=== PATIENT | female | born 1945 | race Caucasian/White ===

== ENCOUNTER 2023-03-28 15:17 | Inpatient (IN) | payer MEDICARE ==
--- NOTE | 2023-03-28 15:45 | ED ---
Lower Extremity Injury HPI - General Stated Complaint: Fall Time Seen by Provider: 03/28/23 15:35 Source: patient, RN notes reviewed Mode of arrival: EMS Limitations: physical limitation - History of Present Illness Initial Comments: Patient is 77-year-old female presented ER via EMS from [facility] with a chief complaint of left hip pain. Patient states she was moving a limb in her yard when the limb broke and she fell backwards landing on her back. Patient denies head injury, loss of consciousness or other injuries. At [facility] she was found to have a left comminuted intertrochanteric fracture of the proximal left femur. Patient received morphine prior to arrival in the ER. Patient states her pain is tolerable currently. Patient has no ot her complaints. - Related Data Home Medications Medication Instructions Recorded Confirmed Calcium Carbonate [Calcium] 600 mg PO DAILY 03/28/23 03/28/23 Escitalopram [Lexapro] 10 mg PO DIRECTED 03/28/23 03/28/23 Multivitamins, Thera [Multivitamin 1 tab PO DAILY 03/28/23 03/28/23 (formulary)] Myrbetriq (Unknown Strength) 1 dose PO DAILY PRN 03/28/23 03/28/23 Tobra-Dexamet 0.3-0.1% Eye Jeaentte 1 drop BOTH EYES DIRECTED 03/28/23 03/28/23 [Tobradex Ophth Susp] Unknown Blood Pressure Medication 1 dose PO DAILY 03/28/23 03/28/23 Allergies Allergy/AdvReac Type Severity Reaction Status Date / Time No Known Allergies Allergy Verified 03/28/23 16:39 Review of Systems ROS Statement: Those systems with pertinent positive or pertinent negative responses have been documented in the HPI. ROS Other: All systems not noted in ROS Statement are negative. General Exam Limitations: physical limitation General appearance: alert, in no apparent distress Respiratory exam: Present: normal lung sounds bilaterally. Absent: respiratory distress, wheezes, rales, rhonchi, stridor Cardiovascular Exam: Present: regular rate, normal rhythm, normal heart sounds. Absent: systolic murmur, diastolic murmur, rubs, gallop, clicks Extremities exam: Present: other (Left leg is slightly shortened with internal rotation of the hip. 2+ left dorsalis pedis pulse. Sensation intact. Positive leg roll.) Neurological exam: Present: alert, oriented X3, CN II-XII intact Psychiatric exam: Present: normal affect, normal mood Skin exam: Present: warm, dry, intact, normal color. Absent: rash Course Vital Signs 03/28/23 03/28/23 03/28/23 15:44 20:03 20:04 Temperature 98 F Pulse Rate 80 68 Respiratory 18 Rate Blood Pressure 137/87 150/77 O2 Sat by Pulse 96 95 Oximetry 03/28/23 20:52 Temperature 98.0 F Pulse Rate Respiratory Rate Blood Pressure O2 Sat by Pulse Oximetry Medical Decision Making - Medical Decision Making Was pt. sent in by a medical professional or institution (, PA, ELECTRICAL EXPERIMENTAL MECHANIC, urgent care, hospital, or residential...) When possible be specific @ -Yes patient was sent from [facility] due to comminuted fracture of left femur for orthopedic consultation. Did you speak to anyone other than the patient for history (EMS, parent, family, police, friend...)? What history was obtained from this source @ -No Did you review nursing and triage notes (agree or disagree)? Why? @ -I reviewed and agree with nursing and triage notes Were old charts reviewed (outside hosp., previous admission, EMS record, old EKG, old radiological studies, urgent care reports/EKG's, residential records)? Report findings @ -I reviewed hospital ER visit from [place]. Patient had CT brain C- spine which was negative for acute process. Patient also had x-ray and CT of left hip showing a comminuted fracture of left femur. Patient was transferred here for orthopedic consultation and further care. Differential Diagnosis (chest pain, altered mental status, abdominal pain women, abdominal pain men, vaginal bleeding, weakness, fever, dyspnea, syncope, headache, dizziness, GI bleed, back pain, seizure, CVA, palpatations, mental health, musculoskeletal)? @ -Differential Musculoskeletal: Muscular strain, contusion, ligament sprain, fracture, arthritis, septic arthritis, bursitis, cellulitis, muscle spasm, nerve compression, DVT, arterial occlusion, herpes zoster, electrolyte abnormality, t umor.... This is not meant to be in all inclusive list EKG interpreted by me (3pts min.). @ -None X-rays interpreted by me (1pt min.). @ -Left AP pelvis and hip x-rays interpreted by me show comminuted fracture of left proximal femur through intertrochanteric region. CT interpreted by me (1pt min.). @ -None done U/S interpreted by me (1pt. min.). @ -None done What testing was considered but not performed or refused? (CT, X-rays, U/S, labs)? Why? @ -None What meds were considered but not given or refused? Why? @ -None Did you discuss the management of the patient with other professionals (professionals i.e. DrBuck, PA, ELECTRICAL EXPERIMENTAL MECHANIC, lab, RT, psych nurse, social media director, international representative, teacher, sheriff officer, family caseworker)? Give summary @ -Yes, I discussed this case with Adam Gomez from orthopedics who advised to start patient on TXA and admit for surgery. He also advised repeat x-rays due to difficulty loading them from prior hospital. I also spoke with [facility], who accepted medical admission. Was smoking cessation discussed for >3mins.? @ -No Was critical care preformed (if so, how long)? @ -No Were there social determinants of health that impacted care today? How? (Homelessness, low income, unemployed, alcoholism, drug addiction, transportation, low edu. Level, literacy, decrease access to med. care, long term, rehab)? @ -No Was there de-escalation of care discussed even if they declined (Discuss DNR or withdrawal of care, Hospice)? DNR status @ -No What co-morbidities impacted this encounter? (DM, HTN, Smoking, COPD, CAD, Cancer, CVA, ARF, Chemo, Hep., AIDS, mental health diagnosis, sleep apnea, morbid obesity)? @ -None Was patient admitted / discharged? Hospital course, mention meds given and route, prescriptions, significant lab abnormalities, going to OR and other pertinent info. @ -Admitted. Patient is a 79-year-old female presenting to the ER from [facility] chief complaint of a left hip injury. Vitals stable. Review of documents from [facility] show a left comminuted fracture of left proximal femur. Patient had CT brain C-spine which was negative for acute process. History and physical exam were completed. Patient was neurovascularly intact. Left leg roll elicited pain. Patient did receive morphine prior to arrival and patient was mildly sedated but able to answer questions properly. I discussed case with Adam gomez with orthopedics who advised to start patient on TXA in to admit with Dr. Kay on consult. I also spoke with [facility] for medical admission, who accepted. Patient will be admitted to medicine with orthopedics on consult. I discussed plan with patient and family, at bedside. Patient and family expressed understanding and agreement with care plan. Undiagnosed new problem with uncertain prognosis? @ -No Drug Therapy requiring intensive monitoring for toxicity (Heparin, Nitro, Insulin, Cardizem)? @ -No Were any procedures done? @ -No Diagnosis/symptom? @ -Comminuted fracture of left femur Acute, or Chronic, or Acute on Chronic? @ -Acute Uncomplicated (without systemic symptoms) or Complicated (systemic symptoms)? @ -Uncomplicated Side effects of treatment? @ -No Exacerbation, Progression, or Severe Exacerbation? @ -No Poses a threat to life or bodily function? How? (Chest pain, USA, MA, pneumonia, PE, COPD, DKA, ARF, appy, cholecystitis, CVA, Diverticulitis, Homicidal, Suicid al, threat to staff... and all critical care pts) @ -No - Lab Data Result diagrams: 03/29/23 05:40 03/29/23 05:40 - Radiology Data Radiology results: report reviewed, image reviewed Disposition Clinical Impression: Comminuted fracture of shaft of femur Disposition: [facility] Condition: Stable Time of Disposition: 10:09
[2023-03-28] MEDS ORDERED: TRANEXAMIC 1,000 MG/100ML-NACL 1,000 MG in SALINE 1 100ML.BAG IV STA (17:05)
[2023-03-28] MEDS ORDERED: NALOXONE 0.4 MG/ML 1 ML VIAL IV PRN (17:16)
--- NOTE | 2023-03-28 18:12 | P.HPOR ---
History of Present Illness H&P Date: 03/28/23 Chief Complaint: Left hip fracture Patient is a 77-year-old female who was transferred from [facility] for evaluation of a left hip injury. Patient was apparently out in her yard moving a fall and limb when she fell and landed on her left lower extremity. Patient was unable to weight-bear after the injury, she was taken to [facility] by EMS for further evaluation. There was concern for a left hip fracture, she was transferred to [facility] for further evaluation. Upon arrival, I was able to discuss with the emergency room staff the case. Computed tomography scan images were reviewed by myself and my attending Dr. Kay. Patient was noted to have a left subtrochanteric fracture with intertrochanteric extension. Further x-rays were ordered as include AP pelvis, left hip x-rays and left femur x-rays for further evaluation. Patient was evaluated in the emergency room, her son and were both present. Patient was slightly out of a due to IV pain medication but was able to answer most my questions accurately. She does have a history of a left total knee arthroplasty that was done about 5 years ago, she notes no acute pain in the left knee at this time. She denies any pain involving the bilateral upper extremities or right lower extremity. She denies any new onset cervical, thoracic or lumbar pain. She denies any headaches, lightheadedness, chest pain, shortness of breath, nausea or vomiting at this time. Patient states that most of the pain is in the proximal aspect of the left lower extremity with movement. There is obvious shortening and rotation of that extremity. Patient denies any previous surgery to the left hip. Patient is a relatively active 77-year-old, she utilizes no assistive devices for ambulation at this time. Patient has no other orthopedic complaints at this time. Review of Systems Constitutional: Reports as per HPI Past Medical History History of Any Multi-Drug Resistant Organisms: None Reported Past Psychological History: No Psychological Hx Reported Smoking Status: Never smoker Past Alcohol Use History: None Reported Past Drug Use History: None Reported Medications and Allergies Home Medications Medication Instructions Recorded Confirmed Type Calcium Carbonate [Calcium] 600 mg PO DAILY 03/28/23 03/28/23 History Multivitamins, Thera [Multivitamin 1 tab PO DAILY 03/28/23 03/28/23 History (formulary)] Myrbetriq (Unknown Strength) 1 dose PO DAILY PRN 03/28/23 03/28/23 History Tobra-Dexamet 0.3-0.1% Eye Jeanette 1 drop BOTH EYES BID 03/28/23 03/28/23 History [Tobradex Ophth Susp] Unknown Blood Pressure Medication 1 dose PO DAILY 03/28/23 03/28/23 History Allergies Allergy/AdvReac Type Severity Reaction Status Date / Time No Known Allergies Allergy Verified 03/28/23 16:39 Physical Examination Left lower extremity: Shortening and a sternal rotation of the extremity compared to the contralateral side. Well-healed incision over the anterior aspect of the knee. No obvious open lesions, sores or areas of erythema to the proximal femur Tenderness with palpation noted to the proximal femur, she's nontender with palpation surrounding the knee, lower leg, foot or ankle No effusion is present on the knee She is unable to straight leg raise, logroll maneuver reproduces severe pain. Flexion and extension of the knee were difficult, this did reproduce pain in the proximal femur. I was able to appreciate good quadriceps and patellar tendon function. Plantar flexion, dorsiflexion, EHL, FHL are intact Calf is soft, no tenderness with palpation Sensory exam to light touch is intact throughout the extremity Dorsalis pedis pulses 2+ Gen. orthopedic exam: No point tenderness is appreciated on palpation of the bilateral upper extremities and right lower extremity. Full range of motion in all major muscle groups of the bilateral upper extremities, no focal deficits. Patient is able to extend and flex the knee along with plantar flexion, dorsiflexion, EHL, FHL to the right lower extremity with no focal deficits. Strength testing was not assessed of the bilateral upper extremities and right lower extremity. No acute cervical, thoracic or lumbar pain appreciated with palpation Results - Diagnostic results Hip x-ray: pending Knee x-ray: pending CT Scan - lumbar: image reviewed Assessment and Plan Assessment: Left subtrochanteric femur fracture with intertrochanteric extension Status post fall from standing Previous left total knee arthroplasty Other medical comorbidities Plan: Imaging: I was able to review the computed tomography scan images with my attending Dr. Kay. Images demonstrated a comminuted left subtrochanteric femur fracture with intertrochanteric extension. No other acute fractures or dislocations are present. X-rays were ordered of an AP pelvis, 2 views left hip and left femur x-rays for further evaluation Plan: After discussion with my attending Dr. Kay, patient was admitted under orthopedic care. Plan is for surgical intervention, more specifically an intramedullary nail of the left femur. Surgery scheduled for 03/30/2023. 1 mg of transischemic acid was ordered and given by the ER staff Risk and benefits of the procedure, this to include but not excluded infection, blood loss, neurovascular injury, development of blood clots, and adequate healing of bone, need for further surgery were discussed with patient and family, they are all in good understanding and would like to proceed. Consent to be obtained prior to procedure Luna catheter insertion at this time Nonweightbearing left lower extremity Pain control, okay to use both oral and IV medication begin scheduled stool softeners also Medical recommendations appreciated DVT prophylaxis, will utilize subcu medication after surgery Further recommendations to follow Time with Patient: Less than 30
--- NOTE | 2023-03-28 18:40 | XR ---
EXAMINATION TYPE: XR Hip LT and AP Pelvis, XR femur LT DATE OF EXAM: 03/28/2023 6:18 PM CLINICAL INDICATION:Female, 77 years old with history of pain; COMPARISON: None. TECHNIQUE: XR Hip LT and AP Pelvis, XR femur LT; hip was examined in the frontal and lateral projecti ons additionally oblique view of the knee. FINDINGS/IMPRESSION: 1. Comminuted left proximal femur fracture through the intertrochanteric region. There is mild varus deformity. 2. Left inferior pubic ramus lucency suspicious for nondisplaced fracture. 3. Follow-up left knee arthroplasty changes no evidence of fracture.
[2023-03-28] MEDS: SODIUM CHLORIDE 0.9% 1,000 ML IV SCH (20:01)
[2023-03-28] MEDS: ONDANSETRON 4 MG/2 ML VIAL IVP PRN (20:10)
[2023-03-28] MEDS: HYDROmorphone 1 MG/ML 1 ML SYRINGE IVP PRN (20:10)
[2023-03-29] MEDS: HYDROmorphone 1 MG/ML 1 ML SYRINGE IVP PRN ×7 (00:41→21:28)
[2023-03-29 09:26] LABS: Basophils # (A) 0.02 X 10*3/uL (0.00-0.10); Basophils % (A) 0.2 %; Eosinophils # (A) 0.01 X 10*3/uL (0.04-0.35); Eosinophils % (A) 0.1 %; HCT 40.9 % (37.2-46.3); HGB 13.1 g/dL (12.0-15.0); Lymphocytes # (A) 1.09 X 10*3/uL (0.90-5.00); Lymphocytes % (A) 9.6 %; MCH 29.4 pg (27.0-32.0); MCV 91.9 FL (80.0-97.0); Mean Platelet Volume 11.8 FL (9.5-12.2); Monocytes # (A) 1.28 X 10*3/uL (0.20-1.00); Monocytes % (A) 11.3 %; NRBC Per 100 WBC 0 X 10*3/uL (0.00-0.01); Neutrophils % (A) 78.5 %; Platelet Count 191 X 10*3/uL (140-440); RBC 4.45 X 10*6/uL (4.10-5.20); RDW 12.6 % (11.5-14.5); WBC 11.33 X 10*3/uL (4.50-10.00)
[2023-03-29 09:35] LABS: ALT 17 U/L (8-44); AST 18 U/L (13-35); Albumin 3.8 g/dL (3.8-4.9); Albumin/Globulin Ratio 1.81 Ratio (1.60-3.17); Alkaline Phosphatase 83 U/L (41-126); BUN/Creat Ratio 32.83 Ratio (12.00-20.00); Blood Urea Nitrogen 19.7 mg/dL (9.0-27.0); Calcium 8.9 mg/dL (8.7-10.3); Carbon Dioxide 26.4 mmol/L (21.6-31.8); Chloride 102 mmol/L (96-109); Globulin 2.1 g/dL (1.6-3.3); Glucose 105 mg/dL (70-110); Potassium 4.5 mmol/L (3.5-5.5); Sodium 138 mmol/L (135-145); Total Bilirubin 0.6 mg/dL (0.3-1.2); Total Protein 5.9 g/dL (6.2-8.2)
[2023-03-29 09:36] LABS: INR 1.06 sec (0.93-1.11); Prothrombin Time 11.4 sec (9.9-11.9)
--- NOTE | 2023-03-29 11:30 | P.PN ---
Subjective Progress Note Date: 03/29/23 Principal diagnosis: Left proximal femur fracture Patient evaluated at bedside, she is resting in her hospital bed. No acute events overnight. She does have some significant discomfort with movement. No chest pain, shortness of breath, fever or chills. Objective - Vital Signs Vital signs: Vital Signs Temp 98.5 F 03/29/23 06:59 Pulse 66 03/29/23 08:00 Resp 17 03/29/23 08:00 BP 123/75 03/29/23 06:59 Pulse Ox 94 L 03/29/23 06:59 FiO2 Intake & Output 03/28/23 03/29/23 03/29/23 18:59 06:59 18:59 Intake Total 1035 Output Total 600 Balance 435 Weight 80.286 kg Intake: Intake, IV Titration 675 Amount Sodium Chloride 0.9% 1, 675 000 ml @ 75 mls/hr IV . [id number] [facility] Rx#:[id number] Oral 360 Output: Urine 600 Other: Voiding Method Indwelling Catheter Indwelling Catheter - Exam Left lower extremity: Shortening and a sternal rotation of the extremity compared to the contralateral side. Well-healed incision over the anterior aspect of the knee. No obvious open lesions, sores or areas of erythema to the proximal femur Tenderness with palpation noted to the proximal femur, she's nontender with palpation surrounding the knee, lower leg, foot or ankle No effusion is present on the knee She is unable to straight leg raise, logroll maneuver reproduces severe pain. Flexion and extension of the knee were difficult, this did reproduce pain in the proximal femur. I was able to appreciate good quadriceps and patellar tendon function. Plantar flexion, dorsiflexion, EHL, FHL are intact Calf is soft, no tenderness with palpation Sensory exam to light touch is intact throughout the extremity Dorsalis pedis pulses 2+ Gen. orthopedic exam: No point tenderness is appreciated on palpation of the bilateral upper extremities and right lower extremity. Full range of motion in all major muscle groups of the bilateral upper extremities, no focal deficits. Patient is able to extend and flex the knee along with plantar flexion, dorsiflexion, EHL, FHL to the right lower extremity with no focal deficits. Strength testing was not assessed of the bilateral upper extremities and right lower extremity. No acute cervical, thoracic or lumbar pain appreciated with palpation - Labs CBC & Chem 7: 03/29/23 05:40 03/29/23 05:40 Labs: Abnormal Lab Results - Last 24 Hours (Table) 03/29/23 03/29/23 Range/Units 05:40 05:40 WBC 11.33 H (4.50-10.00) X 10*3/uL Neutrophils # 8.90 H (1.80-7.70) X 10*3/uL Monocytes # 1.28 H (0.20-1.00) X 10*3/uL Eosinophils # 0.01 L (0.04-0.35) X 10*3/uL BUN/Creatinine Ratio 32.83 H (12.00-20.00) Ratio Total Protein 5.9 L (6.2-8.2) g/dL Assessment and Plan Assessment: Left subtrochanteric femur fracture with intertrochanteric extension Status post fall from standing Previous left total knee arthroplasty Other medical comorbidities Plan: n Plan: Surgery scheduled for 03/30/2023 Risk and benefits of the procedure, this to include but not excluded infection, blood loss, neurovascular injury, development of blood clots, and adequate healing of bone, need for further surgery were discussed with patient and family, they are all in good understanding and would like to proceed. Consent to be obtained prior to procedure Maintain Luna catheter Nonweightbearing left lower extremity Pain control, okay to use both oral and IV medication begin scheduled stool softeners also Regular diet at this time, nothing by mouth after midnight Medical recommendations appreciated DVT prophylaxis, will utilize subcu medication after surgery Further recommendations to follow Time with Patient: Less than 30
[2023-03-29] MEDS: HYDROcodone/APAP 7.5-325MG 1 EACH TAB PO PRN (13:37)
[2023-03-29] MEDS ORDERED: FLUTICASONE 50MCG/SPRAY NASAL 16GM EA NOSTRIL PRN (15:33)
[2023-03-29] MEDS ORDERED: PATIENT'S OWN (Mirabegron [Myrbetriq] 50 MG Tab.Er.24h) PO PRN (15:33)
--- NOTE | 2023-03-29 15:35 | P.CONS ---
History of Present Illness - Reason for Consult Consult date: 03/29/23 - History of Present Illness This is a 77-year-old female with medical history of anxiety, hypertension. Surgical history of cholecystectomy and left knee replacement. Patient presents to the hospital after fall and complaining of left leg pain. Patient states that a limb fell in her yard and she was helping to move the tree limb and she was playing backwards from the limb broke and she fell landing on her back. She was found to have a left comminuted intertrochanteric fracture of the proximal left femur done at [place] she was given pain medication and sent down to [facility] for further evaluation. Hip pelvis x-ray completed here shows the comminuted left proximal femur fracture to the itch trochanteric region there is mild varus deformity. There is a left inferior pubic rami lucency suspicious for nondisplaced fracture. Follow-up left knee arthroplasty changes and showed no evidence of fracture. Had a mildly elevated white blood cell count 11.33 on admission, normal renal function. Patient has been afebrile, heart rate in the 60s, fibular rhythm, blood pressure 120/69. We are asked to see the patient to get preoperative clearance patient should be a low operative risk we are pending a chest x-ray and EKG. REVIEW OF SYSTEMS: CONSTITUTIONAL: No fever, no malaise, no fatigue. HEENT: No recent visual problems or hearing problems. Denied any sore throat. CARDIOVASCULAR: No chest pain, orthopnea, PND, no palpitations, no syncope. PULMONARY: No shortness of breath, no cough, no hemoptysis. GASTROINTESTINAL: No diarrhea, no nausea, no vomiting, no abdominal pain. NEUROLOGICAL: No headaches, no weakness, no numbness. HEMATOLOGICAL: Denies any bleeding or petechiae. GENITOURINARY: Denies any burning micturition, frequency, or urgency. MUSCULOSKELETAL/RHEUMATOLOGICAL: Denies any joint pain, swelling, or any muscle pain. ENDOCRINE: Denies any polyuria or polydipsia. The rest of the 14-point review of systems is negative. PHYSICAL EXAMINATION: GENERAL: The patient is alert and oriented x3, not in any acute distress. Well developed, well nourished. HEENT: Pupils are round and equally reacting to light. EOMI. No scleral icterus. No conjunctival pallor. Normocephalic, atraumatic. No pharyngeal erythema. No thyromegaly. CARDIOVASCULAR: S1 and S2 present. No murmurs, rubs, or gallops. PULMONARY: Chest is clear to auscultation, no wheezing or crackles. ABDOMEN: Soft, nontender, nondistended, normoactive bowel sounds. No palpable organomegaly. MUSCULOSKELETAL: No joint swelling or deformity. EXTREMITIES: No cyanosis, clubbing, or pedal edema. NEUROLOGICAL: Gross neurological examination did not reveal any focal deficits. SKIN: No rashes. Assessment and Plan Acute left femoral fracture status post fall with trauma patient is scheduled to undergo surgical repair tomorrow and is considered a low operative risk as well as EKG does not show any evidence of ischemia and chest x-ray is nondiagnostic. EKG and chest xray are currently pending. History hypertension currently normotensive recommend to hold fosinopril to avoid perio and postoperative hypotension. Continue to monitor blood pressure. History of anxiety not an active issue patient will be continued on lexapro Seasonal allergic rhinitis continue on flonase daily. Overactive bladder can be resumed on myrbetriq this is a non formulary medication would need to be brought in from home Leukocytosis, reactive GI prophylaxis DVT prophylaxis as per primary The impression and plan of care has been dictated by Gladys Chacon, Nurse Practitioner as directed. Dr. Kyeana MD I have performed a history and physical examination and medical decision making of this patient, discussed the same with the dictator, and agree with the dictators assessment and plan as written, documented as a scribe. Based on total visit time, I have performed more than 50% of this visit. Past Medical History Additional Past Medical History / Comment(s): anxiety History of Any Multi-Drug Resistant Organisms: None Reported Additional Past Surgical History / Comment(s): L knee replacement, gallbladder removed, hand growth removed, hysterectomy Past Anesthesia/Blood Transfusion Reactions: Postoperative Nausea & Vomiting (P ONV) Past Psychological History: Anxiety Smoking Status: Never smoker Past Alcohol Use History: None Reported Past Drug Use History: None Reported Medications and Allergies Home Medications Medication Instructions Recorded Confirmed Type Calcium Carbonate [Calcium] 600 mg PO DAILY 03/28/23 03/28/23 History Escitalopram [Lexapro] 10 mg PO HS 03/28/23 03/29/23 History Multivitamins, Thera [Multivitamin 1 tab PO DAILY 03/28/23 03/28/23 History (formulary)] Tobra-Dexamet 0.3-0.1% Eye Jeanette 1 drop BOTH EYES DIRECTED 03/28/23 03/28/23 Hi story [Tobradex Ophth Susp] Fluticasone Nasal [place] [Flonase 1 spray EA NOSTRIL DAILY PRN 03/29/23 03/29/23 History Nasal [place]] Fosinopril [Monopril] 10 mg PO DAILY 03/29/23 03/29/23 History Mirabegron [Myrbetriq] 50 mg PO DAILY PRN 03/29/23 03/29/23 History Allergies Allergy/AdvReac Type Severity Reaction Status Date / Time No Known Allergies Allergy Verified 03/28/23 16:39 Physical Exam Vitals: Vital Signs Temp Pulse Pulse Resp BP BP Pulse Ox 03/29/23 13:24 98.7 F 60 18 122/69 93 L 03/29/23 08:00 66 17 03/29/23 06:59 98.5 F 66 17 123/75 94 L 03/29/23 01:35 98.7 F 71 18 124/75 93 L 03/28/23 21:53 98.5 F 73 17 145/78 92 L 03/28/23 20:52 98.0 F 03/28/23 20:04 150/77 03/28/23 20:03 68 95 03/28/23 15:44 98 F 80 18 137/87 96 Intake and Output 03/29/23 03/29/23 03/29/23 06:59 14:59 22:59 Intake Total 1035 Output Total 600 Balance 435 Intake: Intake, IV Titration 675 Amount Sodium Chloride 0.9% 1, 675 000 ml @ 75 mls/hr IV . [id number] [facility] Rx#:[id number] Oral 360 Output: Urine 600 Other: Voiding Method Indwelling Catheter Results CBC & Chem 7: 03/29/23 05:40 03/29/23 05:40 Labs: Abnormal Lab Results - Last 24 Hours (Table) 03/29/23 03/29/23 Range/Units 05:40 05:40 WBC 11.33 H (4.50-10.00) X 10*3/uL Neutrophils # 8.90 H (1.80-7.70) X 10*3/uL Monocytes # 1.28 H (0.20-1.00) X 10*3/uL Eosinophils # 0.01 L (0.04-0.35) X 10*3/uL BUN/Creatinine Ratio 32.83 H (12.00-20.00) Ratio Total Protein 5.9 L (6.2-8.2) g/dL Assessment and Plan Time with Patient: Less than 30
[2023-03-29] MEDS: TOBRA-DEXAMET 0.3-0.1% OPHTH DROPS 2.5 ML BTL BOTH EYES SCH ×2 (17:56→21:27)
--- NOTE | 2023-03-29 19:50 | XR ---
EXAMINATION TYPE: XR chest 1V portable DATE OF EXAM: 03/29/2023 Comparison: None Clinical History: 77-year-old female pre op clearance Findings: Heart mildly enlarged. Mild perihilar and interstitial densities especially on the left. No other con solidation or pleural effusion. Impression: Mild cardiomegaly and interstitial density. Correlate to exclude mild pulmonary vascular congestion. Recommend follow-up to reassess the left hilum to exclude any developing infiltrate here.
[2023-03-29] MEDS: SODIUM CHLORIDE 0.9% 1,000 ML IV SCH ×2 (19:57→21:28)
[2023-03-29] MEDS: ESCITALOPRAM 10 MG TAB PO SCH (21:28)
[2023-03-30] MEDS: HYDROmorphone 1 MG/ML 1 ML SYRINGE IVP PRN ×4 (00:50→21:30)
[2023-03-30] MEDS: MULTIVITAMINS, THERA 1 EACH TAB PO SCH (08:28)
[2023-03-30] MEDS: CALCIUM CARBONATE 500 MG CHEWABLE PO SCH (08:28)
--- NOTE | 2023-03-30 08:51 | P.PN ---
Progress Note - Text Progress Note Date: 03/30/23 Patient seen this morning. Patient is resting comfortably in bed. Patient does report significant pain into the left hip. She does report that her pain is managed once she receives IV medication. Patient has remained nothing by mouth since midnight for surgical procedure later today. Vital signs and labs have been reviewed and are stable. No acute concerns at this time.
[2023-03-30] MEDS ORDERED: DEXAMETHASONE SOD PHOSPHATE 4 MG/ML 1 ML VIAL IV ONE (09:37)
[2023-03-30] MEDS ORDERED: ONDANSETRON 4 MG/2 ML VIAL IVP ONE (09:37)
[2023-03-30] MEDS: TOBRA-DEXAMET 0.3-0.1% OPHTH DROPS 2.5 ML BTL BOTH EYES SCH ×2 (10:15→21:33)
[2023-03-30] MEDS: LACTATED RINGERS 1,000 ML IV SCH (10:59)
[2023-03-30] MEDS: lisinopriL 10 MG TAB PO SCH ×2 (12:21→12:30)
[2023-03-30] MEDS: ONDANSETRON 4 MG/2 ML VIAL IVP PRN (12:26)
[2023-03-30] MEDS ORDERED: IV FLUID CONTINUATION 1,000 ML IV ONE (16:00)
[2023-03-30] MEDS: SODIUM CHLORIDE 0.9% 1,000 ML IV SCH (16:02)
[2023-03-30] MEDS ORDERED: KETAMINE HCL IN 0.9 % NACL 50 MG/5 ML SYRINGE ONE (16:41)
[2023-03-30] MEDS ORDERED: MIDAZOLAM 2 MG/2 ML VIAL ONE (16:41)
[2023-03-30] MEDS ORDERED: fentaNYL (PF) 50 MCG/ML 2 ML AMP ONE (16:41)
[2023-03-30] MEDS ORDERED: SODIUM CHLORIDE 0.9% 100 ML with ceFAZolin 2,000 MG IV ONE ×2 (16:44)
[2023-03-30] MEDS ORDERED: LACTATED RINGERS 1,000 ML IV ONE (17:43)
--- NOTE | 2023-03-30 18:12 | FL ---
EXAMINATION TYPE: FL guidance operating room, XR femur LT DATE OF EXAM: 03/30/2023 Comparison: None Clinical History: 77-year-old female FEMUR FX IM NAIL Findings: LT femur nail with [place]. 1 min 4 sec fluoro time. 2.6027 Gycm2 DAP. 14 images saved Impression: Intraoperative fluoroscopy as above.
[2023-03-30] MEDS ORDERED: HYDROmorphone 0.5 MG/0.5 ML SYRINGE IVP ONE (18:50)
[2023-03-30] MEDS ORDERED: ALBUTEROL NEBULIZED 2.5 MG/3 ML INHALATION ONE (19:16)
[2023-03-30] MEDS ORDERED: fentaNYL (PF) 50 MCG/ML 2 ML AMP IVP ONE (19:42)
[2023-03-30] MEDS: ESCITALOPRAM 10 MG TAB PO SCH (21:30)
--- NOTE | 2023-03-30 22:43 | P.PN ---
Subjective Progress Note Date: 03/30/23 This is a 77-year-old female with medical history of anxiety, hypertension. Surgical history of cholecystectomy and left knee replacement. Patient presents to the hospital after fall and complaining of left leg pain. Patient states that a limb fell in her yard and she was helping to move the tree limb and she was playing backwards from the limb broke and she fell landing on her back. She was found to have a left comminuted intertrochanteric fracture of the proximal left femur done at [place] she was given pain medication and sent down to [facility] for further evaluation. Hip pelvis x-ray completed here shows the comminuted left proximal femur fracture to the itch trochanteric region there is mild varus deformity. There is a left inferior pubic rami lucency suspicious for nondisplaced fracture. Follow-up left knee arthroplasty changes and showed no evidence of fracture. Had a mildly elevated white blood cell count 11.33 on admission, normal renal function. Patient has been afebrile, heart rate in the 60s, fibular rhythm, blood pressure 120/69. We are asked to see the patient to get preoperative clearance patient should be a low operative risk we are pending a chest x-ray and EKG. 03/30/2023 Patient evaluated on the medical floor pending left sided IM nailing. Patient reporting pain about 3/10 had just received IV pain medication. Had some nausea likely due to the narcotics. Chest xray did show possible vascular congestion as well as mild cardiomegaly and interstitial density. Question of infiltrate. A procalcitonin level was checked and normal at 0.06. EKG showing normal sinus rhythm no ST or T wave changes heart rate of 70. Patient cleared medically to undergo surgery today low operative risk. REVIEW OF SYSTEMS: CONSTITUTIONAL: No fever, no malaise, no fatigue. HEENT: No recent visual problems or hearing problems. Denied any sore throat. CARDIOVASCULAR: No chest pain, orthopnea, PND, no palpitations, no syncope. PULMONARY: No shortness of breath, no cough, no hemoptysis. GASTROINTESTINAL: No diarrhea, no nausea, no vomiting, no abdominal pain. NEUROLOGICAL: No headaches, no weakness, no numbness. PHYSICAL EXAMINATION: GENERAL: The patient is alert and oriented x3, not in any acute distress. Well developed, well nourished. HEENT: Pupils are round and equally reacting to light. EOMI. No scleral icterus. No conjunctival pallor. Normocephalic, atraumatic. No pharyngeal erythema. No thyromegaly. CARDIOVASCULAR: S1 and S2 present. No murmurs, rubs, or gallops. PULMONARY: Chest is clear to auscultation, no wheezing or crackles. ABDOMEN: Soft, nontender, nondistended, normoactive bowel sounds. No palpable organomegaly. MUSCULOSKELETAL: No joint swelling or deformity. EXTREMITIES: No cyanosis, clubbing, or pedal edema. NEUROLOGICAL: Gross neurological examination did not reveal any focal deficits. SKIN: No rashes. Assessment and Plan Acute left femoral fracture status post fall with trauma patient is scheduled to undergo surgical repair today with left hip IM nailing and is considered a low operative risk as well as EKG does not show any evidence of ischemia. History hypertensionn has been resumed on manuel inhibitor continue to monitor BP and monitor for postoperative hypotension History of anxiety not an active issue patient will be continued on lexapro Seasonal allergic rhinitis continue on flonase daily. Overactive bladder can be resumed on myrbetriq this is a non formulary medication would need to be brought in from home Leukocytosis, reactive GI prophylaxis DVT prophylaxis as per primary The impression and plan of care has been dictated by Gladys Chacon, Nurse Practitioner as directed. Dr. Keyana MD I have performed a history and physical examination and medical decision making of this patient, discussed the same with the dictator, and agree with the dictators assessment and plan as written, documented as a scribe. Based on total visit time, I have performed more than 50% of this visit. Objective - Vital Signs Vital signs: Vital Signs Temp 98.8 F 03/30/23 07:00 Pulse 65 03/30/23 07:00 Resp 17 03/30/23 07:00 BP 161/71 03/30/23 07:00 Pulse Ox 94 L 03/30/23 07:00 FiO2 Intake & Output 03/29/23 03/30/23 03/30/23 18:59 06:59 18:59 Intake Total 1000 900 Output Total 300 Balance 700 900 Intake: Intake, IV Titration 600 900 Amount Sodium Chloride 0.9% 1, 600 900 000 ml @ 75 mls/hr IV . [id number] [facility] Rx#:[id number] Oral 400 Output: Urine 300 Other: Voiding Method Indwelling Catheter Indwelling Catheter Indwelling Catheter - Labs CBC & Chem 7: 03/29/23 05:40 03/29/23 05:40 Assessment and Plan Time with Patient: Less than 30
[2023-03-31] MEDS: HYDROmorphone 1 MG/ML 1 ML SYRINGE IVP PRN ×3 (06:44→17:10)
[2023-03-31] MEDS ORDERED: HYDROmorphone 0.5 MG/0.5 ML SYRINGE IVP PRN (07:00)
[2023-03-31] MEDS: lisinopriL 10 MG TAB PO SCH (08:37)
[2023-03-31] MEDS: MAGNESIUM HYDROXIDE 2,400 MG/30 ML CUP PO SCH (08:37)
[2023-03-31] MEDS: MULTIVITAMINS, THERA 1 EACH TAB PO SCH (08:37)
[2023-03-31] MEDS: ENOXAPARIN 40 MG/0.4 ML SYRINGE SQ SCH (08:37)
[2023-03-31] MEDS: SENNOSIDES-DOCUSATE SODIUM 1 EACH TAB PO SCH (08:37)
[2023-03-31] MEDS: CALCIUM CARBONATE 500 MG CHEWABLE PO SCH (08:37)
[2023-03-31] MEDS: TOBRA-DEXAMET 0.3-0.1% OPHTH DROPS 2.5 ML BTL BOTH EYES SCH ×2 (08:39→21:13)
[2023-03-31 10:25] LABS: Blood Urea Nitrogen 19.8 mg/dL (9.0-27.0); Calcium 8.2 mg/dL (8.7-10.3); Carbon Dioxide 24.6 mmol/L (21.6-31.8); Chloride 108 mmol/L (96-109); Glucose 114 mg/dL (70-110); Potassium 4.1 mmol/L (3.5-5.5); Sodium 141 mmol/L (135-145)
--- NOTE | 2023-03-31 14:10 | P.PN ---
Subjective Progress Note Date: 03/31/23 Principal diagnosis: Status post IM nail left subtrochanteric femur fracture Patient evaluated at bedside, she is resting comfortably, her daughter is present. She actually did work with physical therapy today and got to the chair. She does have some discomfort in the left lower extremity with movement. Bandages are all in good position and condition. She denies headaches, lightheadedness, chest pain or shortness of breath Objective - Vital Signs Vital signs: Vital Signs Temp 98.5 F 03/31/23 07:07 Pulse 68 03/31/23 07:07 Resp 18 03/31/23 07:07 BP 144/75 03/31/23 07:07 Pulse Ox 94 L 03/31/23 09:23 FiO2 Intake & Output 03/30/23 03/31/23 03/31/23 18:59 06:59 18:59 Intake Total 900 Output Total 200 950 Balance 700 -950 Intake: IV 900 Output: Urine 950 Estimated Blood Loss 200 Other: Voiding Method Indwelling Catheter Indwelling Catheter # Voids 1 - Exam Left lower extremity: Bandages are in good position and condition, no active drainage Generalized soft tissue swelling appreciated in the proximal thigh Plantar flexion, dorsiflexion, EHL, FHL are intact, hip and knee motion were not assessed Calf is soft, no tenderness with palpation Sensory exam to light touch is intact throughout the extremity Dorsal speed's pulses 2+ - Labs CBC & Chem 7: 03/29/23 05:40 03/31/23 06:08 Labs: Abnormal Lab Results - Last 24 Hours (Table) 03/31/23 Range/Units 06:08 Creatinine 0.5 L (0.6-1.5) mg/dL BUN/Creatinine Ratio 39.60 H (12.00-20.00) Ratio Glucose 114 H (70-110) mg/dL Calcium 8.2 L (8.7-10.3) mg/dL Assessment and Plan Assessment: Postoperative day #1 status post IM nail left subtrochanteric femur fracture Acute blood loss anemia, expected surgical outcome Plan: Pain control, continue with current medications DVT prophylaxis, continue Lovenox, SCDs were also ordered Weight-bear as tolerated, recommend walker and assistance at all times Continue PT/OT Encourage incentive spirometer Monitor surgical dressing, plan to change on 04/01/2023 Medical recommendations appreciated Ferrous sulfate 325 mg twice a day for blood loss anemia Continue to follow during hospital stay
--- NOTE | 2023-03-31 14:59 | P.PN ---
Subjective Progress Note Date: 03/31/23 * 77-year-old female with medical history of anxiety, hypertension. Surgical history of cholecystectomy and left knee replacement. Patient presents to the hospital after fall and complaining of left leg pain. Patient states that a limb fell in her yard and she was helping to move the tree limb and she was playing backwards from the limb broke and she fell landing on her back. She was found to have a left comminuted intertrochanteric fracture of the proximal left femur done at [place] she was given pain medication and sent down to [facility] for further evaluation. Hip pelvis x-ray completed here shows the comminuted left proximal femur fracture to the itch trochanteric region there is mild varus deformity. There is a left inferior pubic rami lucency suspicious for nondisplaced fracture. Follow-up left knee arthroplasty changes and showed no evidence of fracture. Had a mildly elevated white blood cell count 11.33 on admission, normal renal function. Patient has been afebrile, heart rate in the 60s, fibular rhythm, blood pressure 120/69. We are asked to see the patient to get preoperative clearance patient should be a low operative risk we are pending a chest x-ray and EKG. * 03/30/2023 Patient evaluated on the medical floor pending left sided IM nailing. Patient reporting pain about 3/10 had just received IV pain medication. Had some nausea likely due to the narcotics. Chest xray did show possible vascular congestion as well as mild cardiomegaly and interstitial density. Question of infiltrate. A procalcitonin level was checked and normal at 0.06. EKG showing normal sinus rhythm no ST or T wave changes heart rate of 70. Patient cleared medically to undergo surgery today low operative risk. * 03/31/2023: Patient seen and evaluated bedside patient does complain of left hip pain, patient on 4 L of oxygen through nasal cannula, patient is status post left hip surgery, surgery team following, daughter at bedside will follow-up on basic metabolic panel and CBC and pro-calcitonin within normal limits. Postoperative day one PHYSICAL EXAMINATION: GENERAL: The patient is alert and oriented x3, ill appearance, nasal cannula in place HEENT: Pupils are round and equally reacting to light. EOMI. CARDIOVASCULAR: S1 and S2 present. No murmurs, rubs, or gallops. PULMONARY: Chest is clear to auscultation, no wheezing or crackles. ABDOMEN: Soft, nontender, nondistended, normoactive bowel sounds. No palpable organomegaly. MUSCULOSKELETAL: Status post left hip surgery EXTREMITIES: No cyanosis, clubbing, or pedal edema. NEUROLOGICAL: Gross neurological examination did not reveal any focal deficits. SKIN: No rashes. Objective - Vital Signs Vital signs: Vital Signs Temp 98.5 F 03/31/23 07:07 Pulse 68 03/31/23 08:00 Resp 18 03/31/23 08:00 BP 144/75 03/31/23 07:07 Pulse Ox 94 L 03/31/23 09:23 FiO2 Intake & Output 03/30/23 03/31/23 03/31/23 18:59 06:59 18:59 Intake Total 900 Output Total 200 950 Balance 700 -950 Intake: IV 900 Output: Urine 950 Estimated Blood Loss 200 Other: Voiding Method Indwelling Catheter Indwelling Catheter Indwelling Catheter # Voids 1 - Labs CBC & Chem 7: 03/29/23 05:40 03/31/23 06:08 Labs: Abnormal Lab Results - Last 24 Hours (Table) 03/31/23 Range/Units 06:08 Creatinine 0.5 L (0.6-1.5) mg/dL BUN/Creatinine Ratio 39.60 H (12.00-20.00) Ratio Glucose 114 H (70-110) mg/dL Calcium 8.2 L (8.7-10.3) mg/dL Assessment and Plan Assessment: Assessment and Plan * Acute left femoral fracture status post fall with trauma >> status post surgery postoperative day one * Postoperative hypoxia * History hypertensionn * History of anxiety not an active issue patient will be continued on lexapro * Seasonal allergic rhinitis continue on flonase daily. * Overactive bladder can be resumed on myrbetriq this is a non formulary medication * In regards to left femur fracture, patient is status post repair, postoperati ve day one. Continue oxygen supplementation, follow-up on CBC and basic metabolic panel on Lovenox for DVT prophylaxis * In regards to hypertension continue lisinopril * Continue postoperative management per primary team including pain control and DVT prophylaxis will need physical therapy occupational therapy evaluation
[2023-03-31 16:32] LABS: HCT 34.3 % (34.0-46.0); HGB 11.3 gm/dL (11.4-16.0); MCH 30.8 pg (25.0-35.0); MCHC 32.9 g/dL (31.0-37.0); MCV 93.7 fL (80.0-100.0); Mean Platelet Volume 10.5; Platelet Count 143 k/uL (150-450); RBC 3.67 m/uL (3.80-5.40); RDW 12.7 % (11.5-15.5); WBC 9.6 k/uL (3.8-10.6)
[2023-03-31] MEDS: FERROUS SULFATE 325 MG TAB PO SCH (17:10)
[2023-03-31] MEDS: LACTATED RINGERS 1,000 ML IV SCH (19:24)
[2023-03-31] MEDS: ESCITALOPRAM 10 MG TAB PO SCH (21:12)
[2023-03-31] MEDS: HYDROcodone/APAP 7.5-325MG 1 EACH TAB PO PRN (22:49)
[2023-04-01] MEDS: MULTIVITAMINS, THERA 1 EACH TAB PO SCH (07:49)
[2023-04-01] MEDS: lisinopriL 10 MG TAB PO SCH (07:49)
[2023-04-01] MEDS: ENOXAPARIN 40 MG/0.4 ML SYRINGE SQ SCH (07:50)
[2023-04-01] MEDS: MAGNESIUM HYDROXIDE 2,400 MG/30 ML CUP PO SCH (07:50)
[2023-04-01] MEDS: FERROUS SULFATE 325 MG TAB PO SCH ×2 (07:50→15:35)
[2023-04-01] MEDS: CALCIUM CARBONATE 500 MG CHEWABLE PO SCH (07:50)
[2023-04-01] MEDS: TOBRA-DEXAMET 0.3-0.1% OPHTH DROPS 2.5 ML BTL BOTH EYES SCH ×2 (07:50→21:00)
[2023-04-01] MEDS: SENNOSIDES-DOCUSATE SODIUM 1 EACH TAB PO SCH (07:50)
[2023-04-01] MEDS: HYDROcodone/APAP 7.5-325MG 1 EACH TAB PO PRN ×2 (07:54→18:13)
[2023-04-01 10:15] LABS: ALT 10 U/L (8-44); AST 16 U/L (13-35); Albumin 2.7 g/dL (3.8-4.9); Albumin/Globulin Ratio 1.69 Ratio (1.60-3.17); Alkaline Phosphatase 60 U/L (41-126); BUN/Creat Ratio 33.75 Ratio (12.00-20.00); Blood Urea Nitrogen 13.5 mg/dL (9.0-27.0); Calcium 8.1 mg/dL (8.7-10.3); Carbon Dioxide 27.4 mmol/L (21.6-31.8); Chloride 105 mmol/L (96-109); Globulin 1.6 g/dL (1.6-3.3); Glucose 114 mg/dL (70-110); Potassium 4.2 mmol/L (3.5-5.5); Sodium 139 mmol/L (135-145); Total Bilirubin 0.6 mg/dL (0.3-1.2); Total Protein 4.3 g/dL (6.2-8.2)
--- NOTE | 2023-04-01 11:27 | XR ---
EXAMINATION TYPE: XR chest 1V portable DATE OF EXAM: 04/01/2023 COMPARISON: 03/29/2023 INDICATION: Respiratory failure TECHNIQUE: Single frontal view of the chest is obtained. FINDINGS: The heart size is normal. The pulmonary vasculature is normal. The lungs are essentially clear. Some minimal thickening or fluid along the minor fissures may be pr esent. IMPRESSION: 1. No acute pulmonary process.
--- NOTE | 2023-04-01 13:06 | P.PN ---
Subjective Progress Note Date: 04/01/23 Principal diagnosis: Status post IM nail left subtrochanteric femur fracture Patient evaluated at bedside, she is resting comfortably, her daughters are present. Patient is not work with therapy today, she's not been out of bed at this time. SCDs were not delivered yesterday either. Discussed with nursing the need to have these fitted today along with getting patient out of bed. Her urinary catheter remains intact. She denies headaches, lightheadedness, chest pain or shortness of breath Objective - Vital Signs Vital signs: Vital Signs Temp 99.5 F 04/01/23 06:56 Pulse 68 04/01/23 07:50 Resp 17 04/01/23 07:50 BP 119/70 04/01/23 06:56 Pulse Ox 93 L 04/01/23 06:56 FiO2 Intake & Output 03/31/23 04/01/23 04/01/23 18:59 06:59 18:59 Output Total 300 1000 Balance -300 -1000 Output: Urine 300 1000 Other: Voiding Method Indwelling Catheter Indwelling Catheter Indwelling Catheter # Voids 1 - Exam Left lower extremity: Bandages are in good position and condition, no active drainage Generalized soft tissue swelling appreciated in the proximal thigh Plantar flexion, dorsiflexion, EHL, FHL are intact, hip and knee motion were not assessed Calf is soft, no tenderness with palpation Sensory exam to light touch is intact throughout the extremity Dorsal speed's pulses 2+ - Labs CBC & Chem 7: 03/31/23 06:08 04/01/23 05:11 Labs: Abnormal Lab Results - Last 24 Hours (Table) 03/31/23 04/01/23 Range/Units 06:08 05:11 RBC 3.67 L (3.80-5.40) m/uL Hgb 11.3 L (11.4-16.0) gm/dL Plt Count 143 L (150-450) k/uL Creatinine 0.4 L (0.6-1.5) mg/dL BUN/Creatinine Ratio 33.75 H (12.00-20.00) Ratio Glucose 114 H (70-110) mg/dL Calcium 8.1 L (8.7-10.3) mg/dL Total Protein 4.3 L (6.2-8.2) g/dL Albumin 2.7 L (3.8-4.9) g/dL Assessment and Plan Assessment: Postoperative day #2 status post IM nail left subtrochanteric femur fracture Acute blood loss anemia, expected surgical outcome Plan: Pain control, continue with current medications DVT prophylaxis, continue Lovenox, SCDs were also ordered Weight-bear as tolerated, recommend walker and assistance at all times Continue PT/OT Encourage incentive spirometer Motor surgical dressing, we'll hold off on changing today, dressing change and 04/02/2023 Medical recommendations appreciated Ferrous sulfate 325 mg twice a day for blood loss anemia Continue to follow during hospital stay Time with Patient: Less than 30
--- NOTE | 2023-04-01 14:15 | P.PN ---
Subjective Progress Note Date: 04/01/23 * 77-year-old female with medical history of anxiety, hypertension. Surgical history of cholecystectomy and left knee replacement. Patient presents to the hospital after fall and complaining of left leg pain. Patient states that a limb fell in her yard and she was helping to move the tree limb and she was playing backwards from the limb broke and she fell landing on her back. She was found to have a left comminuted intertrochanteric fracture of the proximal left femur done at [facility] she was given pain medication and sent down to [facility] for further evaluation. Hip pelvis x-ray completed here shows the comminuted left proximal femur fracture to the itch trochanteric region there is mild varus deformity. There is a left inferior pubic rami lucency suspicious for nondisplaced fracture. Follow-up left knee arthroplasty changes and showed no evidence of fracture. Had a mildly elevated white blood cell count 11.33 on admission, normal renal function. Patient has been afebrile, heart rate in the 60s, fibular rhythm, blood pressure 120/69. We are asked to see the patient to get preoperative clearance patient should be a low operative risk we are pending a chest x-ray and EKG. * 03/30/2023 Patient evaluated on the medical floor pending left sided IM nailing. Patient reporting pain about 3/10 had just received IV pain medication. Had some nausea likely due to the narcotics. Chest xray did show possible vascular congestion as well as mild cardiomegaly and interstitial density. Question of infiltrate. A procalcitonin level was checked and normal at 0.06. EKG showing normal sinus rhythm no ST or T wave changes heart rate of 70. Patient cleared medically to undergo surgery today low operative risk. * 03/31/2023: Patient seen and evaluated bedside patient does complain of left hip pain, patient on 4 L of oxygen through nasal cannula, patient is status post left hip surgery, surgery team following, daughter at bedside will follow-up on basic metabolic panel and CBC and pro-calcitonin within normal limits. Postoperative day one * 04/01/2023 : Patient seen and evaluated bedside on evaluation patient is alert and oriented 4, white blood cell count within normal limits chest x-ray showed minimal congestion. We will continue to monitor. Requested to use incentive spirometer will wean off oxygen as tolerated PHYSICAL EXAMINATION: GENERAL: The patient is alert and oriented x3, ill appearance, nasal cannula in place HEENT: Pupils are round and equally reacting to light. EOMI. CARDIOVASCULAR: S1 and S2 present. No murmurs, rubs, or gallops. PULMONARY: Chest is clear to auscultation, no wheezing or crackles. ABDOMEN: Soft, nontender, nondistended, normoactive bowel sounds. No palpable organomegaly. MUSCULOSKELETAL: Status post left hip surgery EXTREMITIES: No cyanosis, clubbing, or pedal edema. NEUROLOGICAL: Gross neurological examination did not reveal any focal deficits. SKIN: No rashes. Objective - Vital Signs Vital signs: Vital Signs Temp 99.5 F 04/01/23 06:56 Pulse 68 04/01/23 07:50 Resp 17 04/01/23 07:50 BP 119/70 04/01/23 06:56 Pulse Ox 93 L 04/01/23 06:56 FiO2 Intake & Output 03/31/23 04/01/23 04/01/23 18:59 06:59 18:59 Output Total 300 1000 Balance -300 -1000 Output: Urine 300 1000 Other: Voiding Method Indwelling Catheter Indwelling Catheter Indwelling Catheter # Voids 1 - Labs CBC & Chem 7: 03/31/23 06:08 04/01/23 05:11 Labs: Abnormal Lab Results - Last 24 Hours (Table) 03/31/23 04/01/23 Range/Units 06:08 05:11 RBC 3.67 L (3.80-5.40) m/uL Hgb 11.3 L (11.4-16.0) gm/dL Plt Count 143 L (150-450) k/uL Creatinine 0.4 L (0.6-1.5) mg/dL BUN/Creatinine Ratio 33.75 H (12.00-20.00) Ratio Glucose 114 H (70-110) mg/dL Calcium 8.1 L (8.7-10.3) mg/dL Total Protein 4.3 L (6.2-8.2) g/dL Albumin 2.7 L (3.8-4.9) g/dL Assessment and Plan Assessment: Assessment and Plan * Acute left femoral fracture status post fall with trauma >> status post surgery postoperative day one * Postoperative hypoxia * History hypertensionn * History of anxiety not an active issue patient will be continued on lexapro * Seasonal allergic rhinitis continue on flonase daily. * Overactive bladder can be resumed on myrbetriq this is a non formulary medication * In regards to left femur fracture, patient is status post repair, postoperative day 2. Continue oxygen supplementation, follow-up on CBC and basic metabolic panel on Lovenox for DVT prophylaxis * In regards to postoperative hypoxia chest x-ray negative for infiltrate, minimal congestion. Encourage use of incentive spirometer * In regards to hypertension continue lisinopril * Continue postoperative management per primary team including pain control and DVT prophylaxis will need physical therapy occupational therapy evaluation
[2023-04-01] MEDS: ESCITALOPRAM 10 MG TAB PO SCH (20:59)
[2023-04-02] MEDS: FERROUS SULFATE 325 MG TAB PO SCH ×2 (08:14→17:38)
[2023-04-02] MEDS: lisinopriL 10 MG TAB PO SCH (08:14)
[2023-04-02] MEDS: SENNOSIDES-DOCUSATE SODIUM 1 EACH TAB PO SCH (08:14)
[2023-04-02] MEDS: MULTIVITAMINS, THERA 1 EACH TAB PO SCH (08:15)
[2023-04-02] MEDS: MAGNESIUM HYDROXIDE 2,400 MG/30 ML CUP PO SCH (08:15)
[2023-04-02] MEDS: CALCIUM CARBONATE 500 MG CHEWABLE PO SCH (08:15)
[2023-04-02] MEDS: ENOXAPARIN 40 MG/0.4 ML SYRINGE SQ SCH (08:15)
--- NOTE | 2023-04-02 08:30 | P.OP ---
Date of Procedure: 03/30/23 Preoperative Diagnosis: Current Active Problems Subtrochanteric fracture of left femur (Acute) Comminuted fracture of shaft of femur (Acute) Postoperative Diagnosis: Current Active Problems Subtrochanteric fracture of left femur (Acute) Comminuted fracture of shaft of femur (Acute) Procedure(s) Performed: open reduction with IM nail fixation left subtroch fracture Implants: love and nephew intertan long 120 deg, 360 11 mm Anesthesia: spinal Surgeon: Toni Kay [employer] Associate #1: Francesco Gomez Estimated Blood Loss (ml): 150 IV fluids (ml): 500 Urine output (ml): 250 Pathology: none sent Condition: stable Disposition: PACU Indications for Procedure: Orthopedic Surgery Risk Review The patient is a 77-year-old female presenting for evaluation of sudden onset with hip pain, inability to ambulate after O from standing at home while trying to clean up her yard. It was my pleasure to have seen and examined the patient today. In our visit today we have had a chance to go over subjective complaints, physic al examination findings and treatments including the natural course history without intervention and various interventional options. Her imaging demonstrates left intertrochanteric subtrochanteric femur fracture comminuted displaced rotated. On physical exam, Bri demonstrates pain with motion of left lower extremity, which is NV intact at this time. I have explained to the patient that this fracture needs stabilization. Based on the patients imaging, physical exam, and the rapid progression and disabling nature of her symptoms, at this time I recommend surgery in the form or a: Open reduction with internal medullary nail fixation left hip I discussed the risk a nd benefits of this procedure at length with Bri and her daughter. Questions were invited and answered, and the patient wishes to proceed as outlined below. Currently, I am recommendin. Open treatment with internal medullary nail fixation left hip 2. Review of surgical risks and benefits as well as an educational packet on the proposed surgical procedure. Risks: All surgical procedures come with inherent risks, including those related to positioning, anesthesia, intraoperative findings, and postoperative complications. It is important to understand that surgery does not come with any guarantee of a successful outcome as complications and adverse events are always possible. The patient was given a handout discussing the surgical procedure and risks associated with the intervention, both of which were discussed with the patient. These risks include but are not limited to the following: - Experiencing same, different or even worse symptoms compared to before surgery. - Requiring further surgery or other forms of treatment presently or at some time in the future . - On an extreme but fortunately relatively rare basis severe complication such as blindness, stroke, heart attack, temporary and/or permanent nerve injury, paralysis, coma, or may occur, sometimes without known explanation. - Surgical complications may include but are not limited to risk of infection, fluid accumulation in the surgical dissection site, including a seroma or hematoma, that requires additional surgery, wound drainage, bleeding, new numbness or weakness, vision changes/loss, spinal fluid leakage, non-healing and/or infected incision, headaches, difficulty or inability to swallow, hoarseness, hemopneumothorax, pneumothorax, injury to nerves, spinal cord, blood vessels, lymphatics or other vital organs (i.e., bowel injury, injury to the great vessels); heterotopic bone formation; complications related to the hardware such as screws, rods, including misplaced hardware, device failure, hardware fracture/breakage, or hardware loosening; retained surgical instrumentations or devices and the need for further surgery. - Medical risks of the planned surgery include but are not limited to generalized Infections to the whole body or local areas outside of the surgical site (sepsis), heart attack, bleeding, anaphylaxis, meningitis, seizure, epilepsy, hearing loss, burn trent, laceration of the head or other areas of the body, bruising, hypersensitivity of the skin, bladder over distension; allergic reaction; shoulder injury related to positioning; fat, blood and air clots to other areas of the body like heart, lungs, brain; failure of internal organs such as lungs, kidneys, liver and excessive bleeding. If blood transfusions are necessary, note that transfusions may cause intolerance reactions such as anaphylaxis or other complex reactions. Despite best efforts, the results of surgery might not heal in terms of bone, soft tissues such as skin, fascia, ligaments, and joints. [facility] with single and overlapping rooms running daily. They currently function under the required guidelines as produced by the Senate Finance Committee with regards to the overlapping rooms and will continue to comply with changes to this policy as they occur. The requirements include and are complied with as follows: (1) the critical portions of the overlapping rooms will not occur at the same time, (2) the attending physician will be physically present during the critical portions of the procedure and immediately available during the entire case, and (3) a back-up attending is designated should the primary attending not be immediately available. The patient has had a chance to review all the listed information, has been given print outs detailing this information, and has had all his/her questions answered to their satisfaction. It was my pleasure to have seen and examined Bri. In our visit today we have had a chance to go over my understanding of our patient's current condition, the natural course history without intervention and various interventional options. Questions were invited and answered, and the patient wishes to proceed as outlined above. I have seen and examined the patient for 25 minutes and we have spent more than 50% of the time in repeat and detailed counseling about the patient's condition, its natural course history with out and as much as can be predicted with surgery and re-review of various surgical treatment options. In conclusion, Bri requested we proceed with the above suggested surgery and are willing to accept risks and limitations of the suggested surgery as nature of the disease process and our best attempts at treatment for the condition. Thank you again for allowing us to be part of your patient's care. Please don't hesitate to contact me if you have any further questions. Signed and authenticated by: Toni Martinez [facility] [address] [place] [id number] Description of Procedure: LEFT hip LONG NAIL The patient was seen and examined in the preoperative area. All preoperative protocols were followed. Informed consent was obtained, risks and benefits of the procedure were discussed at length. Risks including bleeding infection damage to the surrounding tissue and risk of reoperation were discussed with the patient. Risk of anesthesia up to and including was discussed with the patient. These are outlined in the risk reviewed. They were willing to accept these risks and all of the risks of surgery. The patient was given a weight- based dose of antibiotics in the form of 2 g Ancef. The patient was seen and evaluated by the anesthesia team who deemed them fit for surgery. The site was marked, the patient was willing to proceed with the procedure. The patient was transferred to the operative suite by the Department of anesthesia. They were then drifted off to sleep by the department of anesthesia andGETA anesthesia was used. Once adequate anesthesia had been obtained the patient was carefully transferred to the operative bed. All bony prominences were padded accordingly. SCDs were placed on the nonoperative lower extremities. Arms were well padded. The patient was transferred to the Dalila table and her Left leg was placed in a Dalila boot and secured to the table. The left leg was placed in a well-leg drake well padded and secured. The post was placed and she was secured appropriately. arms were placed on arm boards and well-padded Preoperative briefing was done with the operative team and everyone was ready for the procedure to start. X Ray used to reduce the fracture with Dalila table. The patient's left leg was then prepped and draped in the normal sterile fashion. Timeout was then performed and all parties in agreement with the procedure to be performed. X-ray was then used to jojo 2 cm proximal to the GT. Skin incision made in line with the femur and blunt dissection taken down to the deep fascia which was split. Blunt dissection then taken down to the tip of the GT and the sharp awl used. Optimal starting point achieved on AP and Lateral imaging. Awl was then advanced into the proximal femur. Ball tip guidewire was then passed into the femur to the tip of the superior pole of the patella distally. It was confirmed on Ap and lateral imaging. Opening reamer then passed followed by 9, 11 and 13 mm reamer. Then the nail was selected and impacted into place over the wire using fluoroscopic guidance. Once in position the lateral guide was placed and skin incision made in line with the femur over the lateral aspect. Dissection taken down through the tensor fascia which was split inline with its fibers. The guide was seated against bone. Pin was placed through a guide for the lag screw to be within 10mm on Ap and lateral of the subchondral bone. This was then measured. Appropriate sized compression screw then selected and drilled. Then the lag screw was drilled. A Lag screw is placed over the wire followed by the compression screw. About 7 mm of compression was achieved. Good alignment in AP and lateral shown. The nail was then locked proximally. Distal locking screw was then placed using lateral and perfect circles distally.Screw was drilled and measured and placed. AP and lateral confirmed good placement and good fracture reduction as well as stability in ROM. The guide was then removed from the nail. The wound was then copiously irrigated with normal sterile saline final AP and lateral fluoroscopic imaging confirmed good placement of pins as well as reduction of fracture. The deep fascia was then closed with 0 Vicryl superficial closed 2-0 Vicryl and skin closed with skin diamond the wound edges approximated very well. The wound was then cleaned and dressed with an optifoam dressing. The patient was then transferred back to their hospital bed. They were awakened by the department of anesthesia having tolerated the procedure very well with no complications. The patient was then transported to the postoperative care unit in stable condition.
[2023-04-02 08:53] LABS: Blood Urea Nitrogen 10.6 mg/dL (9.0-27.0); Calcium 7.8 mg/dL (8.7-10.3); Carbon Dioxide 26.6 mmol/L (21.6-31.8); Chloride 106 mmol/L (96-109); Glucose 103 mg/dL (70-110); Potassium 4.2 mmol/L (3.5-5.5); Sodium 140 mmol/L (135-145)
--- NOTE | 2023-04-02 09:15 | P.PN ---
Subjective Progress Note Date: 04/02/23 Principal diagnosis: Fall with trauma Left hip fracture Patient seen and examined this morning. Patient is resting comfortable in bed. She states that her pain is managed on current regimen. Surgical incisions to the left hip and thigh, incisions are well approximated with diamond intact. No active drainage, new dressings have been applied. Patient denies any numbness or tingling to the lower extremities. Patient reports she has had a edge of bed yesterday and tolerated activity well. Patient is looking forward to working with physical therapy today. She is anticipating subacute rehab at discharge. No acute concerns at this time. Objective - Vital Signs Vital signs: Vital Signs Temp 98.8 F 04/02/23 01:15 Pulse 66 04/02/23 08:00 Resp 18 04/02/23 08:00 BP 116/73 04/02/23 01:15 Pulse Ox 94 L 04/02/23 01:15 FiO2 Intake & Output 04/01/23 04/02/23 04/02/23 18:59 06:59 18:59 Output Total 610 600 Balance -610 -600 Output: Urine 610 600 Other: Voiding Method Indwelling Catheter Indwelling Catheter Indwelling Catheter # Voids 1 # Bowel Movements 0 - Exam Inspection: Moderate ecchymosis over the left hip. Surgical incisions to the left hip and thigh, edges are well approximated with diamond intact. No active drainage. New dressing applied. Sensation: Sensation is equal, symmetric, bilaterally intact throughout the upper and lower extremities Palpation: Nontender to palpation throughout bilateral upper and lower extremities and throughout spine exam Range of motion: Patient does have full range of motion bilateral upper and lower extremities on exam Motor: 5/5 in all major motor groups in the bilateral upper and right lower extremities, 4/5 left lower extremity Special tests: Negative Homans bilaterally. Negative Leyla bilaterally. Negative clonus bilaterally. Neurovascular: Radial pulse intact, 2+ bilaterally. Cap refill under 3 seconds in digits upper extremities. - Labs CBC & Chem 7: 03/31/23 06:08 04/02/23 04:33 Labs: Abnormal Lab Results - Last 24 Hours (Table) 04/01/23 Range/Units 05:11 Creatinine 0.4 L (0.6-1.5) mg/dL BUN/Creatinine Ratio 33.75 H (12.00-20.00) Ratio Glucose 114 H (70-110) mg/dL Calcium 8.1 L (8.7-10.3) mg/dL Total Protein 4.3 L (6.2-8.2) g/dL Albumin 2.7 L (3.8-4.9) g/dL Assessment and Plan Assessment: Postop day 3: Left IM nail fixation Fall with trauma Left subtrochanteric femur fracture Plan: -Appreciate protection consultant and team management. -Activity: Ambulate QID, OOB all meals, up and about, limit lifting bending twisting to less than 5 lbs. Use walker or cane if needed for stability. -Daily PT/OT, increase ambulation strength and balance. -Pain control: Adequate at this time -Meds: reviewed -GI ppx: senna, Miralax -DC flores today -DVT PPX: Heparin, SCDs -Hygiene: Shower today. Maintain dressing clean and dry. -Encourage IS 10x/hr -Dispo: Anticipate discharge to [facility] when bed available *I reviewed and discussed this case with my attending Dr. Kay, whom has reviewed this chart and films and is in agreement with assessment and plan of care as outlined above. I have personally seen and examined the patient, performed the documentation and the assessment and plan as written. Number of minutes spent on the visit: 20m.
[2023-04-02 09:21] LABS: HCT 29.1 % (37.2-46.3); HGB 9.4 g/dL (12.0-15.0); MCH 29.6 pg (27.0-32.0); MCHC 32.3 g/dL (32.0-37.0); MCV 91.5 FL (80.0-97.0); NRBC Per 100 WBC 0 X 10*3/uL (0.00-0.01); Platelet Count 141 X 10*3/uL (140-440); RBC 3.18 X 10*6/uL (4.10-5.20); RDW 12.5 % (11.5-14.5); WBC 9.11 X 10*3/uL (4.50-10.00)
[2023-04-02] MEDS: TOBRA-DEXAMET 0.3-0.1% OPHTH DROPS 2.5 ML BTL BOTH EYES SCH ×2 (10:58→21:03)
--- NOTE | 2023-04-02 13:11 | P.PN ---
Subjective Progress Note Date: 04/02/23 * 77-year-old female with medical history of anxiety, hypertension. Surgical history of cholecystectomy and left knee replacement. Patient presents to the hospital after fall and complaining of left leg pain. Patient states that a limb fell in her yard and she was helping to move the tree limb and she was playing backwards from the limb broke and she fell landing on her back. She was found to have a left comminuted intertrochanteric fracture of the proximal left femur done at [facility] she was given pain medication and sent down to [facility] for further evaluation. Hip pelvis x-ray completed here shows the comminuted left proximal femur fracture to the itch trochanteric region there is mild varus deformity. There is a left inferior pubic rami lucency suspicious for nondisplaced fracture. Follow-up left knee arthroplasty changes and showed no evidence of fracture. Had a mildly elevated white blood cell count 11.33 on admission, normal renal function. Patient has been afebrile, heart rate in the 60s, fibular rhythm, blood pressure 120/69. We are asked to see the patient to get preoperative clearance patient should be a low operative risk we are pending a chest x-ray and EKG. * 03/30/2023 Patient evaluated on the medical floor pending left sided IM nailing. Patient reporting pain about 3/10 had just received IV pain medication. Had some nausea likely due to the narcotics. Chest xray did show possible vascular congestion as well as mild cardiomegaly and interstitial density. Question of infiltrate. A procalcitonin level was checked and normal at 0.06. EKG showing normal sinus rhythm no ST or T wave changes heart rate of 70. Patient cleared medically to undergo surgery today low operative risk. * 03/31/2023: Patient seen and evaluated bedside patient does complain of left hip pain, patient on 4 L of oxygen through nasal cannula, patient is status post left hip surgery, surgery team following, daughter at bedside will follow-up on basic metabolic panel and CBC and pro-calcitonin within normal limits. Postoperative day one * 04/01/2023 : Patient seen and evaluated bedside on evaluation patient is alert and oriented 4, white blood cell count within normal limits chest x-ray showed minimal congestion. We will continue to monitor. Requested to use incentive spirometer will wean off oxygen as tolerated * 04/02/2023: Patient seen and evaluated bedside, patient states breathing is stable, left hip pain has improved continues to remain on oxygen supplementation. Requested to use incentive spirometer plan to discharge to rehab. CBC reviewed hemoglobin 9.4, continue to monitor CRP 8.3 pro- calcitonin within normal limits. Afebrile in the last 24 hours PHYSICAL EXAMINATION: GENERAL: The patient is alert and oriented x3, ill appearance, nasal cannula in place HEENT: Pupils are round and equally reacting to light. EOMI. CARDIOVASCULAR: S1 and S2 present. No murmurs, rubs, or gallops. PULMONARY: Chest is clear to auscultation, no wheezing or crackles. ABDOMEN: Soft, nontender, nondistended, normoactive bowel sounds. No palpable organomegaly. MUSCULOSKELETAL: Status post left hip surgery EXTREMITIES: No cyanosis, clubbing, or pedal edema. NEUROLOGICAL: Gross neurological examination did not reveal any focal deficits. SKIN: No rashes. Objective - Vital Signs Vital signs: Vital Signs Temp 98.6 F 04/02/23 07:05 Pulse 66 04/02/23 08:00 Resp 18 04/02/23 08:00 BP 129/66 04/02/23 07:05 Pulse Ox 95 04/02/23 07:05 FiO2 Intake & Output 04/01/23 04/02/23 04/02/23 18:59 06:59 18:59 Intake Total 400 Output Total 610 600 Balance -610 -600 400 Intake: Oral 400 Output: Urine 610 600 Other: Voiding Method Indwelling Catheter Indwelling Catheter Indwelling Catheter # Voids 1 # Bowel Movements 0 - Labs CBC & Chem 7: 04/02/23 04:33 04/02/23 04:33 Labs: Abnormal Lab Results - Last 24 Hours (Table) 04/02/23 04/02/23 Range/Units 04:33 04:33 RBC 3.18 L (4.10-5.20) X 10*6/uL Hgb 9.4 L (12.0-15.0) g/dL Hct 29.1 L (37.2-46.3) % Creatinine 0.4 L (0.6-1.5) mg/dL BUN/Creatinine Ratio 26.50 H (12.00-20.00) Ratio Calcium 7.8 L (8.7-10.3) mg/dL C-Reactive Protein 8.30 H (0.00-0.80) mg/dL Assessment and Plan Assessment: Assessment and Plan * Acute left femoral fracture status post fall with trauma >> status post surgery postoperative day one * Postoperative hypoxia * History hypertensionn * History of anxiety not an active issue patient will be continued on lexapro * Seasonal allergic rhinitis continue on flonase daily. * Overactive bladder can be resumed on myrbetriq this is a non formulary medic ation * In regards to left femur fracture, patient is status post repair, postoperative day 3 . Continue oxygen supplementation, follow-up on CBC and basic metabolic panel on Lovenox for DVT prophylaxis * In regards to postoperative hypoxia chest x-ray negative for infiltrate, minimal congestion. Encourage use of incentive spirometer * In regards to hypertension continue lisinopril * Continue postoperative management per primary team including pain control and DVT prophylaxis * physical therapy occupational therapy evaluation
[2023-04-02] MEDS: HYDROcodone/APAP 7.5-325MG 1 EACH TAB PO PRN ×2 (15:23→21:03)
[2023-04-02] MEDS: ESCITALOPRAM 10 MG TAB PO SCH (21:03)
[2023-04-02] MEDS: LACTATED RINGERS 1,000 ML IV SCH (22:17)
[2023-04-03] MEDS: HYDROcodone/APAP 7.5-325MG 1 EACH TAB PO PRN ×2 (06:12→11:39)
[2023-04-03] MEDS: FERROUS SULFATE 325 MG TAB PO SCH (06:12)
[2023-04-03 07:03] LABS: HCT 31.3 % (34.0-46.0); HGB 10.9 gm/dL (11.4-16.0); MCH 31.5 pg (25.0-35.0); MCHC 34.8 g/dL (31.0-37.0); MCV 90.6 fL (80.0-100.0); Mean Platelet Volume 8.8; Platelet Count 183 k/uL (150-450); RBC 3.45 m/uL (3.80-5.40); RDW 12.9 % (11.5-15.5); WBC 9.2 k/uL (3.8-10.6)
--- NOTE | 2023-04-03 07:45 | P.PN ---
Subjective Progress Note Date: 04/03/23 Principal diagnosis: Fall with trauma Left hip fracture Patient seen and examined this morning. Patient is sitting up in chair at bedside. She states that her pain is managed on current regimen. Surgical incisions to the left hip and thigh, dressings are clean dry and intact. Patient denies any numbness or tingling to the lower extremities. Patient reports she worked with physical therapy yesterday and had increased pain, she reports improvement today with her ability to relate to chair at bedside this morning. Patient is cleared from our standpoint for discharge when subacute rehab bed is available. No acute concerns at this time. Objective - Vital Signs Vital signs: Vital Signs Temp 98.7 F 04/03/23 01:32 Pulse 75 04/03/23 01:32 Resp 16 04/03/23 01:32 BP 147/77 04/03/23 01:32 Pulse Ox 92 L 04/03/23 01:32 FiO2 Intake & Output 04/02/23 04/03/23 04/03/23 18:59 06:59 18:59 Intake Total 850 Balance 850 Intake: Oral 850 Other: Voiding Method Indwelling Catheter Bedside Commode # Voids 3 - Exam Inspection: Moderate ecchymosis over the left hip. Surgical incisions to the left hip and thigh, dressings are clean dry and intact. Sensation: Sensation is equal, symmetric, bilaterally intact throughout the upper and lower extremities Palpation: Nontender to palpation throughout bilateral upper and lower extremities and throughout spine exam Range of motion: Patient does have full range of motion bilateral upper and lower extremities on exam Motor: 5/5 in all major motor groups in the bilateral upper and right lower extremities, 4/5 left lower extremity Special tests: Negative Homans bilaterally. Negative Leyla bilaterally. Negative clonus bilaterally. Neurovascular: Radial pulse intact, 2+ bilaterally. Cap refill under 3 seconds in digits upper extremities. - Labs CBC & Chem 7: 04/03/23 06:25 04/02/23 04:33 Labs: Abnormal Lab Results - Last 24 Hours (Table) 04/02/23 04/02/23 Range/Units 04:33 04:33 RBC 3.18 L (4.10-5.20) X 10*6/uL Hgb 9.4 L (12.0-15.0) g/dL Hct 29.1 L (37.2-46.3) % Creatinine 0.4 L (0.6-1.5) mg/dL BUN/Creatinine Ratio 26.50 H (12.00-20.00) Ratio Calcium 7.8 L (8.7-10.3) mg/dL C-Reactive Protein 8.30 H (0.00-0.80) mg/dL Assessment and Plan Assessment: Postop day 4: Left IM nail fixation Fall with trauma Left subtrochanteric femur fracture Plan: -Appreciate customs consultant and team management. -Activity: Ambulate QID, OOB all meals, up and about, limit lifting bending twisting to less than 5 lbs. Use walker or cane if needed for stability. -Daily PT/OT, increase ambulation strength and balance. -Pain control: Adequate at this time -Meds: reviewed -GI ppx: senna, Miralax -DC flores today -DVT PPX: Heparin, SCDs -Hygiene: Shower today. Maintain dressing clean and dry. -Encourage IS 10x/hr -Dispo: Anticipate discharge to [facility] when bed available *I reviewed and discussed this case with my attending Dr. Kay, whom has reviewed this chart and films and is in agreement with assessment and plan of care as outlined above. I have personally seen and examined the patient, performed the documentation and the assessment and plan as written. Number of minutes spent on the visit: 20m.
[2023-04-03 08:16] VITALS: RESP 20
[2023-04-03] MEDS: lisinopriL 10 MG TAB PO SCH (09:49)
[2023-04-03] MEDS: SENNOSIDES-DOCUSATE SODIUM 1 EACH TAB PO SCH (09:49)
[2023-04-03] MEDS: MULTIVITAMINS, THERA 1 EACH TAB PO SCH (09:49)
[2023-04-03] MEDS: ENOXAPARIN 40 MG/0.4 ML SYRINGE SQ SCH (09:50)
[2023-04-03] MEDS: CALCIUM CARBONATE 500 MG CHEWABLE PO SCH (09:50)
[2023-04-03] MEDS: MAGNESIUM HYDROXIDE 2,400 MG/30 ML CUP PO SCH (09:50)
[2023-04-03] MEDS: TOBRA-DEXAMET 0.3-0.1% OPHTH DROPS 2.5 ML BTL BOTH EYES SCH (09:52)
--- NOTE | 2023-04-03 09:55 | P.DS ---
Providers Date of admission: 03/28/23 16:00 Expected date of discharge: 04/03/23 Attending physician: Toni Kay DO Consults: 03/29/23 14:25 Consult Physician Urgent Consulting Provider: Stephani Leal Reason/Comments: Medical management Do you want consulting provider notified?: Already Contacted Primary care physician: [facility] Course: Hospital Course: The patient was evaluated preoperatively and found to have the diagnosis of left IT fracture. They underwent appropriate preoperative care and were willing to undergo the intended procedure. They underwent a successful left IT nail fixation, were recovered appropriately and sent to the floor. While on the floor they worked with physical therapy, occupational therapy and nursing to enhance their recovery experience. Their pain was well controlled through their stay and they were started on appropriate medications, DVT ppx modalities, activity and dietary needs. Daily labs were monitored closely, and transfusions were only used when necessary. Medicine as well as other consulting services have made their input and have helped with our team approach and multidisciplinary care. PT milestones have been met and passed and they have made the recommendation of subacute rehab for this patient and treating providers agree with this care path. The patient will be discharged home with appropriate medications, instructions and follow-up information and in stable condition. Patient Condition at Discharge: Stable Plan - Discharge Summary Discharge Rx Participant: No New Discharge Prescriptions: New Enoxaparin [Lovenox] 40 mg SQ DAILY #14 each HYDROcodone/APAP 7.5-325MG [[place] 7.5-325] 1 tab PO Q4-6H PRN #42 tab PRN Reason: Pain Sennosides/Docusate Sodium [Senna Plus 8.6-50 mg Tablet] 1 each PO DAILY PRN #20 tablet PRN Reason: Constipation No Action Multivitamins, Thera [Multivitamin (formulary)] 1 tab PO DAILY Calcium Carbonate [Calcium] 600 mg PO DAILY Escitalopram [Lexapro] 10 mg PO HS Fluticasone Nasal [place] [Flonase Nasal [place]] 1 spray EA NOSTRIL DAILY PRN PRN Reason: Allergy Symptoms Tobra-Dexamet 0.3-0.1% Eye Jeanette [Tobradex Ophth Susp] 1 drop BOTH EYES DIRECTED Mirabegron [Myrbetriq] 50 mg PO DAILY PRN PRN Reason: bladder issues Fosinopril [Monopril] 10 mg PO DAILY Discharge Medication List Calcium Carbonate [Calcium] 600 mg PO DAILY 03/28/23 [History] Escitalopram [Lexapro] 10 mg PO HS 03/28/23 [History] Multivitamins, Thera [Multivitamin (formulary)] 1 tab PO DAILY 03/28/23 [History] Tobra-Dexamet 0.3-0.1% Eye Jeanette [Tobradex Ophth Susp] 1 drop BOTH EYES DIRECTED 03/28/23 [History] Fluticasone Nasal [place] [Flonase Nasal [place]] 1 spray EA NOSTRIL DAILY PRN 03/29/23 [History] Fosinopril [Monopril] 10 mg PO DAILY 03/29/23 [History] Mirabegron [Myrbetriq] 50 mg PO DAILY PRN 03/29/23 [History] Enoxaparin [Lovenox] 40 mg SQ DAILY #14 each 04/03/23 [Rx] HYDROcodone/APAP 7.5-325MG [[place] 7.5-325] 1 tab PO Q4-6H PRN #42 tab 04/03/23 [Rx] Sennosides/Docusate Sodium [Senna Plus 8.6-50 mg Tablet] 1 each PO DAILY PRN #20 tablet 04/03/23 [Rx] Follow up Appointment(s)/Referral(s): Heidi Baker NPC [Nurse Practitioner] - 04/18/23 2:45 pm Colin Rico MD [Primary Care Provider] - 1-2 days Activity/Diet/Wound Care/Special Instructions: Activity: WBAT with walker, ambulate QID, up in chair for all meals. Daily PT/OT to regain strength and mobility. Take medications as directed Utilize ice and elevation Change dressings daily as needed. May leave open to air when there is no drainage present. Hygiene: Patient may shower, allow soapy water to run over incisions and pat dry. Keep areas clean and dry. Follow up in office in 2 weeks, please contact for any questions or concerns Discharge Disposition: TRANSFER TO SNF/ECF
--- NOTE | 2023-04-03 12:45 | P.PN ---
Subjective Progress Note Date: 04/03/23 * 77-year-old female with medical history of anxiety, hypertension. Surgical history of cholecystectomy and left knee replacement. Patient presents to the hospital after fall and complaining of left leg pain. Patient states that a limb fell in her yard and she was helping to move the tree limb and she was playing backwards from the limb broke and she fell landing on her back. She was found to have a left comminuted intertrochanteric fracture of the proximal left femur done at [place] she was given pain medication and sent down to [facility] for further evaluation. Hip pelvis x-ray completed here shows the comminuted left proximal femur fracture to the itch trochanteric region there is mild varus deformity. There is a left inferior pubic rami lucency suspicious for nondisplaced fracture. Follow-up left knee arthroplasty changes and showed no evidence of fracture. Had a mildly elevated white blood cell count 11.33 on admission, normal renal function. Patient has been afebrile, heart rate in the 60s, fibular rhythm, blood pressure 120/69. We are asked to see the patient to get preoperative clearance patient should be a low operative risk we are pending a chest x-ray and EKG. * 03/30/2023 Patient evaluated on the medical floor pending left sided IM nailing. Patient reporting pain about 3/10 had just received IV pain medication. Had some nausea likely due to the narcotics. Chest xray did show possible vascular congestion as well as mild cardiomegaly and interstitial density. Question of infiltrate. A procalcitonin level was checked and normal at 0.06. EKG showing normal sinus rhythm no ST or T wave changes heart rate of 70. Patient cleared medically to undergo surgery today low operative risk. * 03/31/2023: Patient seen and evaluated bedside patient does complain of left hip pain, patient on 4 L of oxygen through nasal cannula, patient is status post left hip surgery, surgery team following, daughter at bedside will follow-up on basic metabolic panel and CBC and pro-calcitonin within normal limits. Postoperative day one * 04/01/2023 : Patient seen and evaluated bedside on evaluation patient is alert and oriented 4, white blood cell count within normal limits chest x-ray showed minimal congestion. We will continue to monitor. Requested to use incentive spirometer will wean off oxygen as tolerated * 04/02/2023: Patient seen and evaluated bedside, patient states breathing is stable, left hip pain has improved continues to remain on oxygen supplementation. Requested to use incentive spirometer plan to discharge to rehab. CBC reviewed hemoglobin 9.4, continue to monitor CRP 8.3 pro- calcitonin within normal limits. Afebrile in the last 24 hours * 04/03/2023: Seen and evaluated bedside, ready for discharge transition to room air. Ambulated without difficulty PHYSICAL EXAMINATION: GENERAL: The patient is alert and oriented x3, appearing well, on room air HEENT: Pupils are round and equally reacting to light. EOMI. CARDIOVASCULAR: S1 and S2 present. No murmurs, rubs, or gallops. PULMONARY: Chest is clear to auscultation, no wheezing or crackles. ABDOMEN: Soft, nontender, nondistended, normoactive bowel sounds. No palpable organomegaly. MUSCULOSKELETAL: Status post left hip surgery EXTREMITIES: No cyanosis, clubbing, or pedal edema. NEUROLOGICAL: Gross neurological examination did not reveal any focal deficits. SKIN: No rashes. Objective - Vital Signs Vital signs: Vital Signs Temp 98.3 F 04/03/23 07:09 Pulse 60 04/03/23 07:09 Resp 20 04/03/23 07:09 BP 111/68 04/03/23 07:09 Pulse Ox 98 04/03/23 07:09 FiO2 Intake & Output 04/02/23 04/03/23 04/03/23 18:59 06:59 18:59 Intake Total 850 Balance 850 Intake: Oral 850 Other: Voiding Method Indwelling Catheter Bedside Commode # Voids 3 - Labs CBC & Chem 7: 04/03/23 06:25 04/02/23 04:33 Labs: Abnormal Lab Results - Last 24 Hours (Table) 04/03/23 Range/Units 06:25 RBC 3.45 L (3.80-5.40) m/uL Hgb 10.9 L (11.4-16.0) gm/dL Hct 31.3 L (34.0-46.0) % Assessment and Plan Assessment: Assessment and Plan * Acute left femoral fracture status post fall with trauma >> status post surgery postoperative day 3 * Postoperative hypoxia RESOLVED * History hypertensionn * History of anxiety not an active issue patient will be continued on lexapro * Seasonal allergic rhinitis continue on flonase daily. * Overactive bladder can be resumed on myrbetriq this is a non formulary medication * In regards to left femur fracture, patient is status post repair, postoperative day 3 . Discharged to subacute rehab * In regards to postoperative hypoxia chest x-ray negative for infiltrate, minimal congestion. Encourage use of incentive spirometer * In regards to hypertension continue lisinopril * Continue postoperative management per primary team including pain control and DVT prophylaxis * physical therapy occupational therapy evaluation
[2023-04-03 14:35] VITALS: BP 108/61; PULSE 65; TEMP 98.5
== END 2023-04-03 15:13 | DRG 482 ==
LOC: EC 15:17 → 4SSUR 16:00
PROVIDERS: ADMIT Orthopaedic Surgery; ATTEND Orthopaedic Surgery
PROC: 0QS706Z Reposition Left Upper Femur with Intramedullary Internal Fixation Device, Open Approach (ICD-10-PCS; principal; 2023-03-30 07:30)
DX: S72.22XA Displaced subtrochanteric fracture of left femur, initial encounter for closed fracture (principal); S72.352A Displaced comminuted fracture of shaft of left femur, initial encounter for closed fracture; W19.XXXA Unspecified fall, initial encounter; F41.9 Anxiety disorder, unspecified; N32.81 Overactive bladder; M21.152 Varus deformity, not elsewhere classified, left hip; R09.02 Hypoxemia; I10 Essential (primary) hypertension; T40.605A Adverse effect of unspecified narcotics, initial encounter; Y92.007 Garden or yard of unspecified non-institutional (private) residence as the place of occurrence of the external cause; Z79.899 Other long term (current) drug therapy; Z96.652 Presence of left artificial knee joint
CPT/HCPCS: 51702; 71045; 73502; 80048; 80053; 83880; 84145; 85025; 85027; 85610; 86140; 93005; 94760; 96361; 96374; 96375; 99285

== ENCOUNTER → 2024-05-21 | Outpatient (CLI) | payer MEDICARE ==
--- NOTE | 2024-05-21 11:38 | XR ---
EXAMINATION TYPE: XR femur LT DATE OF EXAM: 05/21/2024 11:24 AM COMPARISON: 03/28/2023 CLINICAL INDICATION: Female, 78 years old with history of R22.43 LOCALIZED SWELLING, MASS AND M79.66 BLE ONELIA; PHH, pain TECHNIQUE: XR femur LT examined in Frontal and lateral projections. FINDINGS: Post fixation changes with hardware intact. Total knee has a positive changes with hardwar e intact. Moderate degeneration changes of the left hip possibly secondary to posttraumatic change. T here is deformity flattening of the femoral head. Osteophytes also present of the acetabulum. IMPRESSION: 1. Post fixation changes of the femur and tortuous changes of the knee with hardware in place. 2. 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 [facility], , 05/21/2024 11:36 AM
--- NOTE | 2024-05-21 13:13 | US ---
EXAMINATION TYPE: US venous doppler duplex LE BI DATE OF EXAM: 05/21/2024 12:29 PM COMPARISON: NONE CLINICAL INDICATION: Female, 78 years old with history of R2243 SWELLING; left leg pain, bilat leg sw elling, no h/o dvt TECHNIQUE: The lower extremity deep venous system is examined utilizing real time linear array sonog brannon with graded compression, color doppler sonography, and spectral doppler. SIDE PERFORMED: Bilateral FINDINGS: VESSELS IMAGED: Common Femoral Vein Deep Femoral Vein Greater Saphenous Vein * Femoral Vein Popliteal Vein Small Saphenous Vein * Proximal Calf Veins (* superficial vessels) Right Leg: Negative for DVT, Color Doppler imaging shows patency of the vessels. Spectral waveforms are within normal limits. Left Leg: Negative for DVT, Color Doppler imaging shows patency of the vessels. Spectral waveforms a re within normal limits. IMPRESSION: No ultrasound evidence for deep venous thrombosis. [facility], , 05/21/2024 1:11 PM
== END | disposition home or self-care (01) ==
LOC: RADUSWWP 11:01
PROVIDERS: ATTEND Orthopaedic Surgery
DX: M16.12 Unilateral primary osteoarthritis, left hip (principal); R22.43 Localized swelling, mass and lump, lower limb, bilateral
CPT/HCPCS: 93970